=== PATIENT | female | born 1965 | race African-American/Black ===

== ENCOUNTER 2017-04-04 18:43 | Emergency (ER) | payer BC ==
[~2017-04-04] VITALS: Ht 157.5 cm; Wt 77.7 kg
[2017-04-04 20:14] LABS: HEMATOCRIT 40.6 % (36.0-46.0); MCH 26.9 PG (29.0-34.0); MCHC 33.3 G/DL (30.0-36.0); MEAN PLAT.VOLUME 8.8 uM^3 (9.5-12.4); PLATELET COUNT 329 K/uL (156-360); RBC DIS.WIDTH-CV 13.1 % (11.8-14.6); RBC DIS.WIDTH-SD 38.5 % (39-53); RED BLOOD COUNT 5.01 M/uL (3.80-5.20); WHITE BLOOD COUNT 10.9 K/uL (4.1-10.2)
[2017-04-04 20:24] LABS: CHLORIDE 104 mEq/L (99-109); SODIUM 137 mEq/L (136-147)
[2017-04-04 20:26] LABS: GLUCOSE 131 mg/dL (70-99)
[2017-04-04 20:27] LABS: ANION GAP 7 MEQ/L (2-14)
[2017-04-04 20:28] LABS: TOTAL BILIRUBIN 0.4 mg/dL (0.0-1.0)
[2017-04-04 20:29] LABS: ALKALINE PHOSPHATASE 96 IU/L (3-129)
[2017-04-04 20:31] LABS: GFR ESTIMATE (CALCULATED) > 59 mL/min/; UREA NITROGEN (BUN) 11 mg/dL (9-23)
[2017-04-04 20:39] LABS: QUANTITATIVE HCG < 4.0 MIU/ML
[2017-04-04 21:14] LABS: ADD MIUA? YES; BILIRUBIN NEGATIVE; BLOOD NEGATIVE; COLOR YELLOW ((YELLOW)); GLUCOSE (STRIP) NEGATIVE; KETONES NEGATIVE; LEUKOCYTES NEGATIVE; NITRITE NEGATIVE; PROTEIN (STRIP) NEGATIVE; SPECIFIC GRAVITY 1.014 (1.000-1.030); UROBILINOGEN 0.2 MG/DL (0.2-1.0)
[2017-04-04 21:26] LABS: BACTERIA NONE SEEN /HPF; EPITHELIAL CELLS 1+ /HPF; MUCUS TRACE /LPF; RED BLOOD CELLS 0-5 /HPF (0-5); UCUL ADDED? NO; WHITE BLOOD CELLS 0-5 /HPF (0-5)
[2017-04-05] MEDS ORDERED: ZOFRAN ODT4 MG PO (00:07)
[2017-04-05 00:28] VITALS: BP 168/99
== END 2017-04-05 00:29 | disposition home or self-care (01) ==
LOC: EME 18:43
DX: R10.30 Lower abdominal pain, unspecified (principal); R11.0 Nausea
CPT/HCPCS: 74177; 80053; 81003; 84702; 85027; 99281; 99284; J2270; J2405; J7030